=== PATIENT | male | born 1975 ===

== ENCOUNTER → 2016-09-29 | Outpatient (REF) | payer OTHER | LOC: M LAB REF 13:20 | DX: K76.0 Fatty (change of) liver, not elsewhere classified (principal) ==

== ENCOUNTER → 2017-02-09 | Outpatient (REF) | payer OTHER ==
[2017-02-09 17:56] LABS: TOTAL PROTEIN 7.5 GM/DL (6.4-8.2)
[2017-02-13 09:26] LABS: ALBUMIN % 61.4 % (55.8-66.1); GAMMA GLOBULIN % 14.3 % (11.1-18.8)
[2017-02-13 09:27] LABS: ALBUMIN 4.61 GM/DL (3.29-5.55)
== END ==
LOC: M LAB REF 16:16
PROVIDERS: ATTEND Nurse Practitioner Family
DX: L40.50 Arthropathic psoriasis, unspecified (principal)

== ENCOUNTER → 2018-12-04 | Outpatient (REF) | payer BC | LOC: M LAB REF 16:42 | PROVIDERS: ATTEND Physician Assistant | DX: J06.9 Acute upper respiratory infection, unspecified (principal) ==